=== PATIENT | female | born 1955 | race African-American/Black ===

== ENCOUNTER 2017-08-27 07:59 | Day surgery (SDC) | payer OTHER ==
[2017-08-21 16:26] VITALS: BMI 27.0
[2017-08-27] MEDS ORDERED: PROPOFOL 20 ML ONE ×3 (08:08)
[2017-08-27 08:17] VITALS: TEMP 98.2
[2017-08-27 10:24] VITALS: BP 115/68; PULSE 62
--- NOTE | 2017-08-28 16:03 | PATH ---
Surgical Pathology Report Patient Name: BRUCE GAMING [facility]. Rec. #: [id number] /Age/Gender: 1955 (Age: 62) / F Account: [id number] Location: [facility] [place]-[facility]OS[facility] Taken: 08/27/2017 Received: 08/27/2017 Reported: 08/28/2017 Physicians: Román Albert M.D. Specimen(s) Received A: BX DUODENUM B: BX ANTRUM Clinical History GERD, rule out colon cancer Postoperative diagnosis: Abdominal pain, rule out celiac disease, mild gastritis Final Diagnosis A. DUODENUM, BIOPSY: DUODENAL MUCOSA WITH NO PATHOLOGIC FINDINGS. B. ANTRUM, BIOPSY: MILD CHRONIC GASTRITIS. IMMUNOSTAIN IS NEGATIVE FOR H. PYLORI ORGANISMS. Electronically Signed Hollie Osei M.D. Gross Description A. Received in formalin, labeled "duodenum" are 2 cadena, irregular portions of soft tissue measuring 0.4 and 0.5 cm. in greatest dimension. The specimens are submitted in toto in one cassette. B. Received in formalin, labeled "antrum" is a cadena, irregular portion of soft tissue measuring 0.4 cm. in greatest dimension. The specimen is submitted in toto in one cassette. /08/27/2017 saudi08/27/2017
== END 2017-08-27 10:26 | disposition home or self-care (01) ==
LOC: FASU-ENDO 07:59
PROVIDERS: ATTEND Internal Medicine Gastroenterology
PROC: 0DB68ZX Excision of Stomach, Via Natural or Artificial Opening Endoscopic, Diagnostic (ICD-10-PCS; 2017-08-27)
PROC: 0DJD8ZZ Inspection of Lower Intestinal Tract, Via Natural or Artificial Opening Endoscopic (ICD-10-PCS; principal; 2017-08-27 08:58)
PROC: 0DB98ZX Excision of Duodenum, Via Natural or Artificial Opening Endoscopic, Diagnostic (ICD-10-PCS; 2017-08-27 08:58)
DX: Z12.11 Encounter for screening for malignant neoplasm of colon (principal); K29.50 Unspecified chronic gastritis without bleeding
CPT/HCPCS: 88305-TC; 88342-TC